=== PATIENT | female | born 1950 | race Caucasian/White ===

== ENCOUNTER 2017-04-16 12:32 | Emergency (ER) | payer MEDICARE, OTHER ==
[2017-04-16 13:26] LABS: BILIRUBIN NEGATIVE (NEGATIVE); BLOOD NEGATIVE Ery/uL (NEGATIVE); COLOR YELLOW (YELLOW); GLUCOSE (U) NORMAL (NORMAL); KETONE (U) NEGATIVE (NEGATIVE); LEUKOCYTES 1+ Leu/uL (NEGATIVE); NITRITE NEGATIVE (NEGATIVE); PROTEIN NEGATIVE (NEGATIVE); SPECIFIC GRAVITY <=1.005 (1.001-1.030); UROBILINOGEN 0.2 mg/dL (0.2-1.0)
[2017-04-16 13:27] LABS: CLARITY HAZY (CLEAR)
[2017-04-16 13:28] LABS: URINARY RBC RARE; URINARY WBC RARE
== END 2017-04-16 14:04 | disposition home or self-care (01) ==
LOC: FER 12:32
PROVIDERS: Nurse Practitioner
DX: N81.10 Cystocele, unspecified (principal); I10 Essential (primary) hypertension; J45.909 Unspecified asthma, uncomplicated; Z79.84 Long term (current) use of oral hypoglycemic drugs; Z79.82 Long term (current) use of aspirin; Z79.899 Other long term (current) drug therapy
CPT/HCPCS: 81001; 99283

== ENCOUNTER 2017-04-20 11:09 | Emergency (ER) | payer MEDICARE, OTHER | END 2017-04-20 13:57 | disposition home or self-care (01) | LOC: FER 11:09 | DX: N81.10 Cystocele, unspecified (principal); I10 Essential (primary) hypertension; E11.9 Type 2 diabetes mellitus without complications; J45.909 Unspecified asthma, uncomplicated; F41.9 Anxiety disorder, unspecified; Z79.82 Long term (current) use of aspirin; Z79.84 Long term (current) use of oral hypoglycemic drugs; Z79.899 Other long term (current) drug therapy | CPT/HCPCS: 99283 ==

== ENCOUNTER 2021-01-10 08:04 | Day surgery (SDCO) | payer MEDICARE, OTHER ==
[~2021-01-10] VITALS: Ht 157.5 cm; Wt 90.4 kg
[~2021-01-10 08:04] MED LIST: PEPCID AC20 MG PO; ZPAK PO
[2021-01-10 09:09] LABS: BASOPHIL 0.5 % (0-2); HCT 37.9 % (37.0-47.0); HGB 12.4 g/dl (12.5-16.0); LYMPHOCYTE 26.2 % (15-48); MCH 29.1 pg (25.0-31.0); MCHC 32.7 g/dL (32.0-36.0); MONOCYTE 8.7 % (0-12); MPV 9.8 fL (6.0-9.5); NEUTROPHIL 62.4 % (41-80); NRBC 0; PLT 225 K/uL (150-400); RBC 4.26 M/uL (4.20-5.40); RDW 13.4 % (11.5-14.0); WBC 10.3 K/uL (4.0-10.5)
[2021-01-10 09:30] LABS: INR 1.07 (0.9-1.2); PROTHROMBIN TIME 13.2 SECONDS (11.4-13.6); PTT 32.3 SECONDS (22.2-34.7)
[2021-01-10 09:36] LABS: ALBUMIN 3.6 g/dL (3.4-5.0); BILIRUBIN - TOTAL 0.3 mg/dL (0.2-1.0); CREATININE 0.63 mg/dL (0.51-0.95); GLOBULIN (CALCULATION) 3.5 g/dL; POTASSIUM 3.8 mmol/L (3.5-5.1); TOTAL PROTEIN 7.1 g/dL (6.4-8.2)
[2021-01-10] MEDS ORDERED: FLOVENT DISKU100 MCG (14:21)
[2021-01-10] MEDS ORDERED: CELEXA20 M1 PO (14:21)
[2021-01-10] MEDS ORDERED: GLUCOTROL5 MG PO (14:22)
[2021-01-10] MEDS ORDERED: LOSARTAN-HCTZ1 EACH PO (14:23)
[2021-01-10] MEDS ORDERED: METFORMIN HCL500 MG PO (14:24)
[2021-01-10] MEDS ORDERED: REMERON15 MG PO (14:24)
[2021-01-10] MEDS ORDERED: MIRAPEX1.5 MG PO (14:26)
[2021-01-10] MEDS ORDERED: ASPIRIN81 MG PO (14:29)
[2021-01-10] MEDS ORDERED: MELATONIN10 M2 PO (14:29)
[2021-01-10] MEDS ORDERED: COMPLEX B-1001 EACH PO (14:30)
[2021-01-10] MEDS ORDERED: VITAMIN D325 MC4 PO (14:31)
[2021-01-10] MEDS ORDERED: LEVEMIR100 UNIT/1 SC (14:31)
[2021-01-10] MEDS ORDERED: ZYRTEC10 MG PO (14:53)
[2021-01-10] MEDS ORDERED: LASIX20 MG PO (14:53)
[2021-01-10] MEDS ORDERED: K-DUR20 MEQ PO (14:53)
[2021-01-10] MEDS ORDERED: TRULICITY3 MG/0.5 M SC (15:46)
[2021-01-10 15:55] LABS: CHOLESTEROL 178 mg/dL (<200); HDL 44 mg/dL (40-60); LDL - DIRECT 113 mg/dL (<100); TRIGLYCERIDES 143 mg/dL (<150)
--- NOTE | 2021-01-10 21:26 | NUR ---
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
--- NOTE | 2021-01-10 21:28 | NUR ---
1950 DR JANSEN CALLED FOR UPDATE ON PT. STATED WILL TRANSFER PT OUT TO ANOTHER FACILITY FOR HIGHER LEVEL OF CARE.
--- NOTE | 2021-01-10 21:30 | NUR ---
2024 [facility] CALLED AND ASKED FOR PT'S MEDICAL RECORDS TO BE SENT VIA FAX. TASK COMPLETED.
--- NOTE | 2021-01-10 21:31 | NUR ---
2039 DR JANSEN CALLED AND STATED PT WOULD BE TRANSFERED TO [facility] IN [place] TO BE EVALUATED BY VASCULAR.
--- NOTE | 2021-01-10 21:33 | NUR ---
2041 PT'S SON VICKY KING NOTIFIED OF PT'S TRANSFER TO [facility] IN [place] TO BE EVALUATED BY VASCULAR. PT'S SON IN AGREEMENT WITH TRANSFER.
--- NOTE | 2021-01-11 01:24 | NUR ---
0120 REPORT CALLED TO [facility]ILAN AT [place] [id number] [address].
--- NOTE | 2021-01-11 01:47 | NUR ---
0130 CALLED [facility] FOR TRANSPORT. SPOKE WITH THERESA. TRANSPORT ARRANGED.
--- NOTE | 2021-01-11 02:02 | NUR ---
0155 DR JANSEN CALLED AND WAS GIVEN UPDATE RE PT LEAVING WITH EMS TO TRANSPORT TO [facility] IN [place].
--- NOTE | 2021-01-11 02:03 | NUR ---
0200 VICKY KING PT'S SON NOTIFIED PT LEAVING FOR [facility] AT THIS TIME.
--- NOTE | 2021-01-11 02:04 | NUR ---
0201 PT DC'D IN STABLE CONDITION TO [facility].TRANSPORTED VIA EMS IN STABLE CONDITION.
== END 2021-01-11 02:00 | disposition other institution (70) ==
LOC: FER 08:04 → FMS 10:32
PROVIDERS: Emergency Medicine; ADMIT Internal Medicine
DX: R47.1 Dysarthria and anarthria (principal); F98.5 Adult onset fluency disorder; I10 Essential (primary) hypertension; E78.5 Hyperlipidemia, unspecified; E11.9 Type 2 diabetes mellitus without complications; J45.909 Unspecified asthma, uncomplicated; F03.90 Unspecified dementia, unspecified severity, without behavioral disturbance, psychotic disturbance, mood disturbance, and anxiety; G25.81 Restless legs syndrome; I65.23 Occlusion and stenosis of bilateral carotid arteries; Z79.4 Long term (current) use of insulin; Z79.82 Long term (current) use of aspirin; Z79.899 Other long term (current) drug therapy; Z88.8 Allergy status to other drugs, medicaments and biological substances; Z20.822 Contact with and (suspected) exposure to COVID-19
CPT/HCPCS: 36415; 70450; 71045; 80053; 80061; 83036; 84439; 84443; 84484; 85025; 85610; 85730; 93005; G0378; J1650; J2060; Q9967; U0002

== ENCOUNTER 2022-01-15 04:01 | Emergency (ER) | payer MEDICARE, OTHER ==
[~2022-01-15 04:01] MED LIST changes: +ASPIRIN81 MG PO; +CELEXA20 M1 PO; +CEPHALEXIN500 M1 PO; +COMPLEX B-1001 EACH PO; +FLOVENT DISKU100 MCG; +GLUCOTROL5 MG PO; +K-DUR20 MEQ PO; +LASIX20 MG PO; +LEVEMIR100 UNIT/1 SC; +LOSARTAN-HCTZ1 EACH PO; +MELATONIN10 M2 PO; +METFORMIN HCL500 MG PO; +MIRAPEX1.5 MG PO; +REMERON15 MG PO; +TRULICITY3 MG/0.5 M SC; +VITAMIN D325 MC4 PO; +ZYRTEC10 MG PO
[2022-01-15 04:43] LABS: BASOPHIL 0.5 % (0-2); EOSINOPHIL 2.2 % (0-7); HCT 37.1 % (37.0-47.0); HGB 11.6 g/dl (12.5-16.0); LYMPHOCYTE 26.3 % (15-48); MCH 27.9 pg (25.0-31.0); MCHC 31.3 g/dL (32.0-36.0); MCV 89.2 fL (78.0-100.0); MPV 10.1 fL (6.0-9.5); NEUTROPHIL 63.7 % (41-80); NRBC 0; PLT 284 K/uL (150-400); RBC 4.16 M/uL (4.20-5.40); RDW 16.2 % (11.5-14.0)
[2022-01-15 04:53] LABS: ALBUMIN 3.8 g/dL (3.4-5.0); BILIRUBIN - TOTAL 0.2 mg/dL (0.2-1.0); BUN/CREAT RATIO (CALC) 33.3 RATIO; CREATININE 0.66 mg/dL (0.51-0.95); GLOBULIN (CALCULATION) 3.8 g/dL; POTASSIUM 3.8 mmol/L (3.5-5.1); TOTAL PROTEIN 7.6 g/dL (6.4-8.2)
[2022-01-15 06:14] LABS: CORONAVIRUS 2019 SARS-COV-2 NEGATIVE (NEGATIVE); INFLUENZA A NAA NEGATIVE (NEGATIVE)
[2022-01-15] MEDS ORDERED: AZITHROMYCIN250 MG PO (07:30)
[2022-01-15] MEDS ORDERED: PREDNISONE 20MG20 MG PO (07:30)
== END 2022-01-15 08:27 | disposition home or self-care (01) ==
LOC: FER 04:01
PROVIDERS: Internal Medicine
DX: J45.901 Unspecified asthma with (acute) exacerbation (principal); E11.9 Type 2 diabetes mellitus without complications; I10 Essential (primary) hypertension; F03.90 Unspecified dementia, unspecified severity, without behavioral disturbance, psychotic disturbance, mood disturbance, and anxiety; Z20.822 Contact with and (suspected) exposure to COVID-19; Z28.310 Unvaccinated for COVID-19
CPT/HCPCS: 36415; 36600; 71045; 80053; 82803; 83880; 84145; 84484; 85025; 93005; 94640; 94664; J2930; U0002

== ENCOUNTER 2022-02-13 01:03 | Emergency (ER) | payer MEDICARE, OTHER ==
[~2022-02-13 01:03] MED LIST changes: +ADALAT CC60 MG PO; +ATORVASTATIN CA80 MG PO; +AZITHROMYCIN250 MG PO; +CEFDINIR300 MG PO; +FARXIGA10 MG PO; +PREDNISONE 20MG20 MG PO; +SYMBICORT 80-10.2 GM INH; +TRIAMCINOLONE 080 GM TOP
== END 2022-02-13 02:44 | disposition home or self-care (01) ==
LOC: FER 01:03
DX: J44.9 Chronic obstructive pulmonary disease, unspecified (principal); F03.90 Unspecified dementia, unspecified severity, without behavioral disturbance, psychotic disturbance, mood disturbance, and anxiety; E11.9 Type 2 diabetes mellitus without complications; I10 Essential (primary) hypertension; Z79.84 Long term (current) use of oral hypoglycemic drugs; Z79.899 Other long term (current) drug therapy
CPT/HCPCS: 71045; 93005; 94640; 94664